=== PATIENT | female | born 1995 | race Caucasian/White ===

== ENCOUNTER 2018-02-27 08:04 | Emergency (ER) | payer OTHER ==
[~2018-02-27] VITALS: Ht 160 cm; Wt 48.1 kg
== END 2018-02-27 13:40 | disposition home or self-care (01) ==
LOC: ER 08:04
DX: N13.2 Hydronephrosis with renal and ureteral calculous obstruction (principal)

== ENCOUNTER → 2018-09-14 | Emergency (ER) | payer OTHER ==
[~2018-09-14] VITALS: Ht 160 cm; Wt 45.4 kg
== END | disposition home or self-care (01) ==
LOC: ER 17:40
DX: J06.9 Acute upper respiratory infection, unspecified (principal)